=== PATIENT | female | born 1975 | race Two or more races ===

== ENCOUNTER 2016-11-15 15:07 | Emergency (ER) | payer MEDICAID ==
[2016-11-15 15:18] VITALS: BP 171/80; PULSE 105; RESP 18; TEMP 99; O2SAT 96
[2016-11-15] MEDS ORDERED: ONDANSETRON DISINTEGRATING 4 MG TAB PO ONE (16:16)
[2016-11-15] MEDS ORDERED: MECLIZINE HCL 25 MG TAB PO ONE (16:16)
--- NOTE | 2016-11-15 16:20 | UCPHY ---
H & P Time Seen by Provider: 11/15/16 16:01 Patient Type: Established HPI/ROS: This patient has vertigo. She awakened this morning feeling a sense of the room spinning that worsened with movement. This triggered nausea and vomiting- few episodes this morning. Through the day the vertigo is slightly improved and she has had no further vomiting but she does have some ongoing nausea. She is quite anxious about her symptoms. She has had a prior episode of benign paroxysmal positional vertigo but that seemed more episodic then this study episode of vertigo she is concerned that she might "have a stroke." ROS: She reports fatigue that she has associates with a new Azelestine medication that she was started on by her ENT for seasonal allergies 2 weeks ago. She has been using this every other day and feels that it makes her very sleepy. No fevers. No other constitutional symptoms. HEENT: She denies any forehead or maxillary sinus pain. She reports mild occipital discomfort and neck discomfort that feels paraspinous location right side more than left. Pulmonary: No cough GI: No abdominal pain no hematemesis. Neuro: No focal numbness or weakness. She had brief tingling in her scalp that has since resolved. 10 point ROS is otherwise negative. Past Medical/Surgical History: Hypertension Smoking Status: Never smoked Physical Exam: Physical exam: Eyes: Pupils are equal and reactive to light. Extraocular motions are intact. Optic fundi: Clear with no papilledema or hemorrhage. Vital signs are normal General: Patient is in no acute distress. HEENT: No cranial tenderness except for a minimal occipital tenderness at the insertion of paraspinous cervical muscles on the right side. Nose atraumatic. Ears: Clear bilaterally with no hemotympanum. Oropharynx: No dental trauma or malocclusion. No intraoral lacerations. Eyes: Pupils are equal and reactive to light. Extraocular motions are intact. Neck: No midline tenderness. She has mild paraspinous muscular tenderness right more than left but retains a supple neck with no meningismus. Lungs: Clear to auscultation bilaterally Cardiac: Regular rate and rhythm no murmur gallop or rub. Abdomen: Soft nontender no organomegaly Back: Nontender Neuro: GCS of 15. Cranial nerves II through XII intact. Cerebellar exam is normal as judged by symmetric rapid hand movements bilaterally. No pronator drift. No lateral nystagmus. With head movement she has increase in symptoms. No sensory or motor deficits are appreciated. Initial differential diagnosis: Benign positional vertigo. No evidence of central vertigo. No clinical evidence of stroke. Doubt metabolic disarray. Doubt [employer] lesion. Constitutional: Initial Vital Signs Temperature (C) 37.2 C 11/15/16 15:12 Heart Rate 105 H 11/15/16 15:12 Respiratory Rate 18 11/15/16 15:12 Blood Pressure 171/80 H 11/15/16 15:12 O2 Sat (%) 96 11/15/16 15:12 O2 Delivery Mode Room Air Allergies/Adverse Reactions: sulfamethoxazole [From Bactrim] Allergy (Verified 11/15/16 15:10) trimethoprim [From Bactrim] Allergy (Verified 11/15/16 15:10) Home Medications: Medication Instructions Recorded FENOFIBRATE 48 mg 05/02/13 Lisinopril 02/11/14 Aspirin 81mg (OTC) 02/16/15 Fish Oil 02/16/15 Fluticasone Nasal 02/16/15 MAGNESIUM 02/16/15 Vitamin D3 2000 units (OTC) 02/16/15 Aspirin 81mg (*) 11/15/16 Azelastine 11/15/16 Finacea 11/15/16 Fluticasone Nasal [Flonase Nasal 2 sprays NASAL DAILY #1 mdi 11/15/16 [place] (RX)] Iron 11/15/16 Meclizine HCl [Meclizine HCl 25 mg 25 mg PO TID PRN #20 tab 11/15/16 (RX,OTC)] Ondansetron Odt [Zofran Odt] 4 - 8 mg PO Q4PRN PRN #4 tab 11/15/16 Zinc 11/15/16 MDM/Departure - MDM Medications Given: Discontinued Medications Meclizine HCl (Meclizine Hcl) 25 mg PO EDNOW ONE Stop: 11/15/16 16:17 Last Admin: 11/15/16 16:26 Dose: 25 mg Ondansetron HCl (Zofran Odt) 8 mg PO EDNOW ONE Stop: 11/15/16 16:17 Last Admin: 11/15/16 16:25 Dose: 8 mg ED Course/Re-evaluation: Zofran with resolution of her nausea. I counseled the patient regarding peripheral vertigo/benign positional vertigo reassured her that clinically she does not have findings to suggest central vertigo or stroke. She does have hypertension here the think is related to anxiety about her symptoms. She does not have evidence of end-organ injury from hypertension. I counseled her to have follow-up recheck this coming week with her ENT and to recheck her blood pressure. - Depart Disposition: Home, Routine, Self-Care Clinical Impression: Benign positional vertigo Qualifiers: Laterality: unspecified laterality Qualified Code(s): H81.10 - Benign paroxysmal vertigo, unspecified ear Vomiting Qualifiers: Vomiting type: unspecified Vomiting Intractability: non-intractable Nausea presence: with nausea Qualified Code(s): R11.2 - Nausea with vomiting, unspecified Condition: Good Instructions: Benign Paroxysmal Positional Vertigo (ED) Additional Instructions: Diagnoses: 1. Benign positional vertigo 2. Vomiting Plan: Drink plenty fluids Zofran for nausea if needed Meclizine for spinning sensation if needed Stop azelastine and start Flonase steroid nasal spray as prescribed. Call your ENT physician to arrange follow-up appointment for this coming week. Go to the emergency department for any significant worsening despite the treatment plan Prescriptions: Fluticasone Nasal [Flonase Nasal [place] (RX)] 2 sprays NASAL DAILY #1 mdi Meclizine HCl [Meclizine HCl 25 mg (RX,OTC)] 25 mg PO TID PRN #20 tab PRN Reason: vertigo Ondansetron Odt [Zofran Odt] 4 - 8 mg PO Q4PRN PRN #4 tab PRN Reason: Vomiting Referrals: Noe Araujo DO [Primary Care Provider] - As per Instructions - PQRS PQRS Measurement: NA
== END 2016-11-15 16:47 | disposition home or self-care (01) ==
LOC: CED 15:07
DX: H81.10 Benign paroxysmal vertigo, unspecified ear (principal); I10 Essential (primary) hypertension
CPT/HCPCS: 99214-PO; G0463-PO

== ENCOUNTER → 2017-01-24 | Outpatient (CLI) | payer MEDICAID | LOC: CIMAGING 12:55 | PROVIDERS: ATTEND Family Medicine | DX: Z12.39 Encounter for other screening for malignant neoplasm of breast (principal); R92.8 Other abnormal and inconclusive findings on diagnostic imaging of breast | CPT/HCPCS: G0206 ==

== ENCOUNTER 2017-08-16 08:55 | Emergency (ER) | payer MEDICAID ==
[2017-08-16 09:18] VITALS: TEMP 98.8
[2017-08-16] MEDS ORDERED: NS 1,000 ML IV ONE (09:29)
[2017-08-16] MEDS ORDERED: KETOROLAC 30 MG/1 ML SDV IVP ONE (09:30)
[2017-08-16 09:56] LABS: PLATELET COUNT 239 10^3/uL (150-400)
[2017-08-16 10:37] VITALS: BP 144/81; PULSE 90; RESP 18; O2SAT 97
--- NOTE | 2017-08-16 10:48 | EDPHY ---
H & P Time Seen by Provider: 08/16/17 09:09 HPI/ROS: This patient presents with complaints of cough, subjective fevers, myalgias nausea and vomiting. Her symptoms started over the past few days with nasal congestion as her for symptoms prior to the onset of the other symptoms. She reports bilateral ear pressure in addition and a sore throat 7/10 intensity. She has a cough feels like a dry hacky and she is concerned that she might have influenza. She reports that her last menstrual. Had been 3 months ago and now this current menses is "heavy your in bleeding than typical for her. She has associated pelvic cramping of [id number] intensity. Her brought her here by private vehicle due to her multiple somatic complaints. ROS: Subjective fevers and chills. Moderate fatigue. No other constitutional symptoms Psychiatric: She reports insomnia over the past 4 nights have very little sleep. She has mild anxiety this morning associated with her symptoms. HEENT: Nasal congestion no facial pain. No change in hearing. Neuro: No generalized headache or confusion. No numbness tingling or focal weakness. Pulmonary: No pleuritic pain or hemoptysis Cardiovascular: Mild lightheadedness GI: Diarrhea-few episodes over the past 24 hr loose and watery. No abdominal pain. : As per HPI. Patient saw her OB this week due to her abdominal cramping and negative test. 10 point ROS is otherwise negative Smoking Status: Never smoked Physical Exam: Vital signs are notable for hypertension. Otherwise normal exception of an O2 sat of 94% on room air General Appearance: Alert, no distress. Eyes: Pupils equal and round no pallor or injection. ENT, Mouth: Mucous membranes moist. Respiratory: Clear to auscultation bilaterally no rales or rhonchi appreciated. Cardiovascular: Regular rate and rhythm. Gastrointestinal: Normoactive, soft, minimal suprapubic tenderness with no guarding or rebound. Neurological: GCS 15. Skin: Warm and dry, no rashes. Musculoskeletal: Neck is supple nontender. Extremities are symmetrical, full range of motion. Psychiatric: Patient is mildly anxious. Mood and affect are otherwise normal. DIFFERENTIAL DIAGNOSIS: After history and physical exam differential diagnosis was considered for influenza, anemia, , viral syndrome, insomnia Constitutional: Initial Vital Signs Temperature (C) 37.1 C 08/16/17 08:59 Heart Rate 100 08/16/17 08:59 Respiratory Rate 20 08/16/17 08:59 Blood Pressure 165/118 H 08/16/17 08:59 O2 Sat (%) 94 08/16/17 08:59 O2 Delivery Mode Room Air Allergies/Adverse Reactions: sulfamethoxazole [From Bactrim] Allergy (Verified 08/16/17 09:04) Other-Enter Comments trimethoprim [From Bactrim] Allergy (Verified 08/16/17 09:04) Other-Enter Comments Home Medications: Medication Instructions Recorded Fish Oil 02/16/15 Fluticasone Nasal 02/16/15 MAGNESIUM 02/16/15 Vitamin D3 2000 units (OTC) 02/16/15 Fluticasone Nasal [Flonase Nasal 2 sprays NASAL DAILY #1 mdi 11/15/16 [place] (RX)] Iron 11/15/16 Zinc 11/15/16 Zaleplon [Sonata] 10 mg PO HS PRN #12 capsule 08/16/17 MDM/Departure - MDM Medications Given: Discontinued Medications Sodium Chloride (Ns) 1,000 mls @ 0 mls/hr IV EDNOW ONE; Wide Open PRN Reason: Protocol Stop: 08/16/17 09:30 Last Admin: 08/16/17 09:46 Dose: 1,000 mls Ketorolac Tromethamine (Toradol) 30 mg IVP EDNOW ONE Stop: 08/16/17 09:31 Last Admin: 08/16/17 09:47 Dose: 30 mg ED Course/Re-evaluation: IV normal saline with IV Toradol and Zofran with improvement in her symptoms. Review of labs reveals normal CBC metabolic panel. test is negative Discussion workup ruled out or anemia. No other significant abnormal findings. Patient's hypertension improved with treatment here of her other symptoms. I think that she has a viral illness that will improve if she is able to get rest. I recommended sonata for her insomnia. Will treat her dysmenorrhea with ibuprofen. She will follow up with her OBGYN for further evaluation of any ongoing vaginal bleeding. - Depart Disposition: Home, Routine, Self-Care Clinical Impression: Dysmenorrhea, Viral URI with cough Condition: Good Instructions: Dysmenorrhea (ED), Insomnia (ED) Additional Instructions: Diagnosis: Dysmenorrhea 2. Insomnia 3. Viral URI with cough Your labs are normal today. Plan: Drink plenty fluids Ibuprofen-600 mg per 6 hr as needed for pain Sonata for sleep if needed Follow up with your OBGYN regarding your irregular menses. Return emergency department for any significant worsening despite the treatment plan. Prescriptions: Zaleplon [Sonata] 10 mg PO HS PRN #12 capsule PRN Reason: insomnia Referrals: Noe Araujo DO [Primary Care Provider] - As per Instructions
== END 2017-08-16 11:09 | disposition home or self-care (01) ==
LOC: CED 08:55
DX: J06.9 Acute upper respiratory infection, unspecified (principal); N94.6 Dysmenorrhea, unspecified; E86.9 Volume depletion, unspecified
CPT/HCPCS: 80048-PO; 84703-PO; 85025-PO; 96374; J1885

== ENCOUNTER 2017-08-24 20:57 | Emergency (ER) | payer MEDICAID ==
[2017-08-24 21:16] VITALS: BP 135/107; PULSE 82; RESP 18; TEMP 98.1; O2SAT 95
--- NOTE | 2017-08-24 21:30 | EDPHY ---
H & P Time Seen by Provider: 08/24/17 21:05 HPI/ROS: CHIEF COMPLAINT: Dizziness, insomnia History by patient HISTORY OF PRESENT ILLNESS: 42-year-old woman with a history of hypertension and anxiety presents complaining of insomnia, strange dreams, feeling confused and unwell since she began taking metoprolol for her blood pressure 3 days ago. Patient was seen 1 week ago for flu-like symptoms and apparently also at that time had taken an accidental overdose of diphenhydramine. She says subsequently her blood pressures remained high in her primary care physician started her on metoprolol. She also states that she has not slept in over a week since that episode. She has a history of anxiety for which she does cognitive behavioral therapy when she feels that that could be contributing. She says that when he tries to go to sleep she gets frightening images of people hanging or blood thinks about things like suicide although she denies wanting to kill herself. She has no suicidal plan. She does state that she has spoken to both her usual therapist, her primary care physician and a 2nd therapist about these thoughts and images acute coming in her brain when she is trying sleep and they have told her that she is not acutely manic or suicidal. She does wonder however if she might be having a mental illness. She denies any blood pressure related symptoms such as headache, chest pain, shortness of breath or swelling. REVIEW OF SYSTEMS: As in HPI, and all other systems reviewed and are negative Smoking Status: Never smoked Physical Exam: General Appearance: Alert, obese, nontoxic-appearing. Head: normocephalic, atraumatic Eyes: Pupils equal and round, reactive to light, no pallor or injection. Mouth: Mucous membranes moist. Respiratory: Normal, effort, lungs are clear to auscultation. No wheezes, rales or rhonchi. Cardiovascular: Regular rate and rhythm. S1, S2, no murmurs, gallops or rubs appreciated Gastrointestinal: Abdomen is soft and nontender, no masses, bowel sounds normal. Back: No CVA tenderness, no bony tenderness Neurological: Awake, alert and oriented x 3, no pronator drift, normal gait, no pronator drift, normal reflexes Skin: Warm and dry, no rashes. Musculoskeletal: No deformities or tenderness. Extremities: full range of motion, no edema, DP2+ bilat Psychiatric: Patient has normal affect, there is no agitation. No suicidal homicidal ideation Constitutional: Initial Vital Signs Temperature (C) 36.7 C 08/24/17 21:12 Heart Rate 82 08/24/17 21:12 Respiratory Rate 18 08/24/17 21:12 Blood Pressure 135/107 H 08/24/17 21:12 O2 Sat (%) 95 08/24/17 21:12 O2 Delivery Mode Room Air Allergies/Adverse Reactions: diphenhydramine [From Benadryl] Allergy (Verified 08/24/17 21:11) sulfamethoxazole [From Bactrim] Allergy (Verified 08/16/17 09:04) Other-Enter Comments trimethoprim [From Bactrim] Allergy (Verified 08/16/17 09:04) Other-Enter Comments Home Medications: Medication Instructions Recorded Fish Oil 02/16/15 Fluticasone Nasal 02/16/15 MAGNESIUM 02/16/15 Vitamin D3 2000 units (OTC) 02/16/15 Fluticasone Nasal [Flonase Nasal 2 sprays NASAL DAILY #1 mdi 11/15/16 [place] (RX)] Iron 11/15/16 Zinc 11/15/16 Zaleplon [Sonata] 10 mg PO HS PRN #12 capsule 08/16/17 Metoprolol Tartrate 08/24/17 MDM/Departure - [facility] ED Course/Re-evaluation: 42-year-old woman presents complaining of feeling unwell after starting metoprolol as well as ongoing insomnia. Patient was prescribed some nausea for her insomnia when she was here 1 week ago but she said that this medicine made her feel terrible. She says she is generally intolerant to or sensitive to medications. Here her blood pressure is slightly elevated but there is no evidence of hypertensive emergency or urgency. Since she feels some of her symptoms are related to taking metoprolol I think it is safe for her to stop this medication and follow up with primary care physician later this week to discuss starting a different kind of blood pressure medication. Patient does state she took lisinopril in the past with good results. Patient also is concerned about her mental health and although she is not actively suicidal or homicidal or danger to herself or gravely disabled at this time I do think she would benefit for ongoing psychiatric care and I am recommending that she get a referral to a psychiatrist from her therapist that she follow up closely with her therapist. Patient her are agreeable to this plan. - Depart Disposition: Home, Routine, Self-Care Clinical Impression: Elevated blood pressure reading, Anxiety Insomnia Qualifiers: Insomnia type: unspecified Qualified Code(s): G47.00 - Insomnia, unspecified Condition: Good Instructions: Chronic Hypertension (ED), Insomnia (ED), Anxiety (ED) Additional Instructions: You were seen by Dr. Ani Hunt today. Stop taking your metoprolol. Follow up with the primary care physician as soon as possible to change blood pressure medications. Continue to follow up with your cognitive behavioral therapist and consider referral to a psychiatrist. Return for any worsening or new concerns. Referrals: Noe Araujo, [Primary Care Provider] - As per Instructions
== END 2017-08-24 21:34 | disposition home or self-care (01) ==
LOC: CED 20:57
DX: G47.00 Insomnia, unspecified (principal); F41.9 Anxiety disorder, unspecified; I10 Essential (primary) hypertension

== ENCOUNTER → 2017-08-26 | Outpatient (CLI) | payer MEDICAID | LOC: CIMAGING 10:36 | PROVIDERS: ATTEND Family Medicine | DX: Z13.820 Encounter for screening for osteoporosis (principal) ==

== ENCOUNTER 2017-09-24 10:00 | Emergency (ER) | payer MEDICAID ==
--- NOTE | 2017-09-24 10:40 | EDPHY ---
H & P Smoking Status: Never smoked Time Seen by Provider: 09/24/17 10:21 HPI/ROS: CHIEF COMPLAINT: Hallucinations, suicidal ideation HISTORY OF PRESENT ILLNESS: 42-year-old female presents with hallucinations and suicidal ideation. 1 month ago she took Benadryl for the 1st time and experienced visual hallucinations and violent dreams. This experience has deeply affected her and she states she has had PTSD since that episode. Over the last month, she has had insomnia and is being kept awake at night by recurring thoughts of the episode with Benadryl. Last evening she had a visual hallucination. She thought that her was in was 1 room, but then actually saw him in another. She became very upset about this and felt that she was losing her mind. She also has an episode of memory loss yesterday, associated with forehead tingling. Increased anxiety recently and she feels that she is having a mental breakdown. Her primary care physician prescribe Zoloft last week, but she has not taken Zoloft. Previously worked in the mental health field. REVIEW OF SYSTEMS: Constitutional: No fever, no recent illness Eyes: No visual changes ENT: No sore throat Respiratory: No cough, no shortness of breath Cardiac: No chest pain Gastrointestinal: No nausea, no vomiting, no abdominal pain Genitourinary: no dysuria Musculoskeletal: No leg pain or swelling Skin: No rash Neurological: No headache, no numbness, no weakness Psychiatric: Anxiety and depression (Kristie Fung) Past Medical/Surgical History: Anxiety Depression (Kristie Fung) Social History: (Kristie Fung) Physical Exam: General Appearance: Alert, pleasant Eyes: Pupils equal and round, no conjunctival pallor or injection ENT, Mouth: Mucous membranes moist Neck: Normal inspection Respiratory: Lungs are clear to auscultation Cardiovascular: Regular rate and rhythm Gastrointestinal: Abdomen is soft and nontender Neurological: Alert, oriented x3, cranial nerves II through XII intact, motor 5 /5, sensory intact to light touch, normal gait. Skin: Warm and dry, no rash Extremities: Nontender, no pedal edema Psychiatric: Anxious (Kristie Fung) Constitutional: Initial Vital Signs Temperature (C) 36.8 C 09/24/17 10:06 Heart Rate 100 09/24/17 10:06 Respiratory Rate 20 09/24/17 10:06 Blood Pressure 132/99 H 09/24/17 10:06 O2 Sat (%) 96 09/24/17 10:06 O2 Delivery Mode Room Air Allergies/Adverse Reactions: diphenhydramine [From Benadryl] Allergy (Verified 09/24/17 10:04) sulfamethoxazole [From Bactrim] Allergy (Verified 09/24/17 10:04) Other-Enter Comments trimethoprim [From Bactrim] Allergy (Verified 09/24/17 10:04) Other-Enter Comments Home Medications: Medication Instructions Recorded Fish Oil 02/16/15 Fluticasone Nasal 02/16/15 MAGNESIUM 02/16/15 Vitamin D3 2000 units (OTC) 02/16/15 Fluticasone Nasal [Flonase Nasal 2 sprays NASAL DAILY #1 mdi 11/15/16 [place] (RX)] Iron 11/15/16 Zinc 11/15/16 Medical Decision Making - Diagnostics Imaging Results: Imaging Impressions Head CT 09/24/17 10:23 Impression: No acute intracranial findings. If symptoms persist and clinical suspicion warrants, consider MRI. Findings discussed with Cyndi Meneses, answering for KRISTIE FUNG, 09/24/2017 at 12:03. Other Provider: Patient was signed out to me at [address] Fung pending mental health evaluation, with anticipation of likely discharge home if mental health agrees. At 1845, I was informed by Alina, the mental health dough machine operator that the evaluation was complete and they feel the patient is safe for discharge home. They have counseled the patient extensively and established a safety plan. ( Arnulfo Zaidi) - Data Points Laboratory Results: Laboratory Results 09/24/17 10:40 09/24/17 10:40 09/24/17 09/24/17 09/24/17 10:45 10:40 10:40 WBC RBC Hgb Hct MCV MCH MCHC RDW Plt Count MPV Neut % (Auto) Lymph % (Auto) [place] % (Auto) Eos % (Auto) Baso % (Auto) Nucleat RBC Rel Count Absolute Neuts (auto) Absolute Lymphs (auto) Absolute Monos (auto) Absolute Eos (auto) Absolute Basos (auto) Absolute Nucleated RBC Immature Gran % Immature Gran # Sodium 143 mEq/L mEq/L (135-145) Potassium 3.9 mEq/L mEq/L (3.5-5.2) Chloride 107 mEq/L mEq/L (97-110) Carbon Dioxide 22 mEq/l mEq/l (22-31) Anion Gap 14 mEq/L mEq/L (8-16) BUN 9 mg/dL mg/dL (7-23) Creatinine 0.7 mg/dL mg/dL (0.6-1.0) Estimated GFR > 60 Glucose 115 mg/dL H mg/dL (70-100) Calcium 9.8 mg/dL mg/dL (8.5-10.4) TSH 1.610 uIU/mL uIU/mL (0.465-4.680) Beta HCG, Qual NEGATIVE Urine Opiates Screen NEGATIVE (NEGATIVE) Urine Barbiturates NEGATIVE (NEGATIVE) Ur Phencyclidine Scrn NEGATIVE (NEGATIVE) Ur Amphetamine Screen NEGATIVE (NEGATIVE) U Benzodiazepines Scrn NEGATIVE (NEGATIVE) Urine Cocaine Screen NEGATIVE (NEGATIVE) U Marijuana (THC) Screen NEGATIVE (NEGATIVE) Ethyl Alcohol < 10 mg/dL mg/dL (0-10) 09/24/17 10:40 WBC 11.04 10^3/uL H 10^3/uL (3.80-9.50) RBC 4.97 10^6/uL 10^6/uL (4.18-5.33) Hgb 15.3 g/dL g/dL (12.6-16.3) Hct 43.6 % % (38.0-47.0) MCV 87.7 fL fL (81.5-99.8) MCH 30.8 pg pg (27.9-34.1) MCHC 35.1 g/dL g/dL (32.4-36.7) RDW 13.3 % % (11.5-15.2) Plt Count 243 10^3/uL 10^3/uL (150-400) MPV 9.7 fL fL (8.7-11.7) Neut % (Auto) 76.1 % H % (39.3-74.2) Lymph % (Auto) 16.1 % % (15.0-45.0) [place] % (Auto) 6.6 % % (4.5-13.0) Eos % (Auto) 0.4 % L % (0.6-7.6) Baso % (Auto) 0.5 % % (0.3-1.7) Nucleat RBC Rel Count 0.0 % % (0.0-0.2) Absolute Neuts (auto) 8.40 10^3/uL H 10^3/uL (1.70-6.50) Absolute Lymphs (auto) 1.78 10^3/uL 10^3/uL (1.00-3.00) Absolute Monos (auto) 0.73 10^3/uL 10^3/uL (0.30-0.80) Absolute Eos (auto) 0.04 10^3/uL 10^3/uL (0.03-0.40) Absolute Basos (auto) 0.06 10^3/uL 10^3/uL (0.02-0.10) Absolute Nucleated RBC 0.00 10^3/uL 10^3/uL (0-0.01) Immature Gran % 0.3 % % (0.0-1.1) Immature Gran # 0.03 10^3/uL 10^3/uL (0.00-0.10) Sodium Potassium Chloride Carbon Dioxide Anion Gap BUN Creatinine Estimated GFR Glucose Calcium TSH Beta HCG, Qual Urine Opiates Screen Urine Barbiturates Ur Phencyclidine Scrn Ur Amphetamine Screen U Benzodiazepines Scrn Urine Cocaine Screen U Marijuana (THC) Screen Ethyl Alcohol Departure - Departure Disposition: Home, Routine, Self-Care Clinical Impression: Depression Qualifiers: Depression Type: major depressive disorder Major depression recurrence: recurrent Active/Remission status: currently active Major depression episode severity: moderate Qualified Code(s): F33.1 - Major depressive disorder, recurrent, moderate Condition: Good Instructions: Depression (ED), Anxiety (ED) Referrals: Noe Araujo DO [Primary Care Provider] - As per Instructions [facility] [Outside] - As per Instructions (Follow-up as suggested.)
[2017-09-24 10:49] LABS: PLATELET COUNT 243 10^3/uL (150-400)
[2017-09-24 12:04] VITALS: RESP 16
[2017-09-24 18:37] VITALS: BP 129/88; PULSE 92; TEMP 97.9; O2SAT 94
== END 2017-09-24 19:05 | disposition home or self-care (01) ==
DX: F33.1 Major depressive disorder, recurrent, moderate (principal)
CPT/HCPCS: 80305; G0480

== ENCOUNTER → 2018-08-06 | Outpatient (CLI) | payer OTHER | LOC: CIMAGING 10:16 | PROVIDERS: ATTEND Family Medicine | DX: R19.04 Left lower quadrant abdominal swelling, mass and lump (principal) | CPT/HCPCS: 76705-PO ==

== ENCOUNTER → 2018-09-09 | Outpatient (CLI) | payer OTHER | LOC: CIMAGING 10:42 | PROVIDERS: ATTEND Family Medicine | DX: Z12.31 Encounter for screening mammogram for malignant neoplasm of breast (principal) ==

== ENCOUNTER 2018-10-02 07:48 | Emergency (ER) | payer OTHER ==
[2018-10-02] MEDS ORDERED: NS 1,000 ML IV ONE (08:12)
[2018-10-02] MEDS ORDERED: KETOROLAC 30 MG/1 ML SDV IVP ONE (08:12)
--- NOTE | 2018-10-02 08:16 | EDPHY ---
H & P Stated Complaint: right abd pain/flank pain started 2 weeks, hematuria started 4 days ago Time Seen by Provider: 10/02/18 07:56 HPI/ROS: CHIEF COMPLAINT: Right adnexal pain, right flank pain, hematuria HISTORY OF PRESENT ILLNESS: 43-year-old female with history of polycystic ovary disease, on metformin, and history of hypertension, on prazosin, presents to the emergency department reporting for the last 2-3 weeks she has had progressively worsening right low quadrant/right adnexal discomfort. She reports it felt like she was developing a cyst on her right ovary. Last menstrual period was September 16. Patient then began to note discomfort in the right flank 2-3 days ago, and this morning had an episode of urinary incontinence. She thinks her may have been blood in the urine. She now presents with discomfort in the right lower quadrant as well as the right flank. No nausea. No vomiting. No fever. No dysuria. No diarrhea. No personal history of kidney stones, however her mother has a history of kidney stones. No vaginal bleeding. No prior abdominal surgeries. No history of constipation. Last bowel movement was earlier today. No fever, chills, chest pain, shortness of breath, palpitations, vomiting, diarrhea, headache, lightheadedness. REVIEW OF SYSTEMS: A comprehensive 10 system review of systems was reviewed and is otherwise negative aside from elements mentioned in the history of present illness and medical decision making. PAST MEDICAL HISTORY: Polycystic ovary disease, hypertension. SOCIAL HISTORY: Nonsmoker, no alcohol, no illicit drug use. VITAL SIGNS Reviewed by me. GENERAL: Well-developed, well-nourished, resting comfortably in no respiratory distress. HEENT: Atraumatic. Eyes: No icterus, no injection. Mouth: moist mucous membranes. No erythema or lesions. Neck: supple with no adenopathy. LUNGS: Clear to auscultation bilaterally, no wheezes, rhonchi or rales. CARDIAC: Regular rate and rhythm, no rubs, murmurs or gallops. ABDOMEN: Soft, mild tenderness to deep palpation in the right adnexal and right lower quadrants. No guarding or rebound. BACK: Slight right CVA tenderness. EXTREMITIES: No trauma. No edema. Range of motion is normal throughout. NEURO: Alert and oriented, grossly nonfocal. SKIN: Warm and dry, no rash. PSYCHIATRIC: Normal mentation, no agitation. - Personal History LMP (Females 10-55): 8-14 Days Ago Tetanus Vaccine Date: 2009 - Medical/Surgical History Hx Asthma: No Hx Chronic Respiratory Disease: No Hx Diabetes: No Hx Cardiac Disease: No Hx Renal Disease: No Hx Cirrhosis: No Hx Alcoholism: No Hx HIV/AIDS: No Hx Splenectomy or Spleen Trauma: No Other PMH: HTN, rhinoplasty, hemorrhoidectomy, seasonal allergies, PCOS - Social History Smoking Status: Never smoked Constitutional: Initial Vital Signs Temperature (C) 36.8 C 10/02/18 07:55 Heart Rate 84 10/02/18 07:55 Respiratory Rate 18 10/02/18 07:55 Blood Pressure 153/82 H 10/02/18 07:55 O2 Sat (%) 97 10/02/18 07:55 O2 Delivery Mode Room Air Allergies/Adverse Reactions: diphenhydramine [From Benadryl] Allergy (Verified 10/02/18 07:54) sulfamethoxazole [From Bactrim] Allergy (Verified 10/02/18 07:54) Other-Enter Comments trimethoprim [From Bactrim] Allergy (Verified 10/02/18 07:54) Other-Enter Comments Home Medications: Medication Instructions Recorded Cephalexin [Keflex (RX)] 500 mg PO TID 7 Days cap 10/02/18 Ibuprofen 600 mg PO Q8 PRN #20 tablet 10/02/18 Metformin HCl 10/02/18 Prazosin HCl 10/02/18 Medical Decision Making - Diagnostics Imaging Results: Imaging Impressions Abdomen/Pelvis CT 10/02/18 08:48 IMPRESSION: 1. No evidence of nephrolithiasis or hydronephrosis. 2. 5.0 cm complex right adnexal cystic lesion may represent hemorrhagic cyst. Further evaluation with ultrasound is recommended. 3. Thickened, heterogenous endometrium with more focal irregular, masslike thickening and fluid density in the lower uterine segment, further evaluation with ultrasound is recommended to exclude mass. Julissa Rodriguez was notified of these findings by telephone at 9:24 AM on 10/02/2018 Pelvic/Renal Ultrasound 10/02/18 09:24 Impression: 1. Two benign simple cysts in the right ovary, measuring up to 4.3 cm. For cysts less than 5 cm, no specific imaging follow up is recommended. 2. Normal thickness minimally heterogeneous endometrium, likely within normal limits, with multiple nabothian cysts accounting for the appearance on CT. Findings discussed with Julissa Rodriguez MD on 10/02/2018 at 10:30 a.m. ED Course/Re-evaluation: 43-year-old female with history of polycystic ovarian disease presenting with right adnexal and lower quadrant discomfort as well as right flank is comfort. IV was placed and the patient received Toradol. Urinalysis demonstrates blood and leukocyte esterase. CT scan was obtained to evaluate for kidney stone. No kidney stones were identified, patient was noted to have a large cyst in the right ovary. Ultrasound evaluation was recommended. Pelvic ultrasound demonstrates simple cyst in the right ovary with the largest being 4.3 cm. Patient also has multiple nabothian cysts. No free fluid. Patient advised to follow up with her OBGYN physician for further treatment and observation of the cyst. Urine was sent for culture. No complaints related to possible appendicitis, patient has not had any vomiting , fever, anorexia, and symptoms have been present for 2-3 weeks. Doubt appendicitis, however, patient knows that she should return to the emergency department if she is not improving as expected. Patient was discharged with instructions regarding ibuprofen, Tylenol if needed for additional pain control, and will start Keflex for her complains of urinary frequency. She states that she has gone to the bathroom about 4 times here and is feeling some urinary urgency. Urine sent for culture. Differential Diagnosis: The differential diagnosis for the patient's abdominal pain was considered including but not limited to ovarian cyst, pelvic inflammatory disease, ovarian torsion, urinary tract infection, related complications, and appendicitis. - Data Points Laboratory Results: 10/02/18 10/02/18 08:32 08:10 POC Sodium 139 mEq/L mEq/L (135-145) POC Potassium 4.0 mEq/L mEq/L (3.3-5.0) POC Chloride 105.0 mEq/L mEq/L (97-110) POC Total CO2 24 mEq/L mEq/L (22-31) POC BUN 8 mg/dL mg/dL (7-23) POC Creatinine 0.4 mg/dL L mg/dL (0.6-1.0) POC Glucose 110 mg/dL H mg/dL (70-100) POC Calcium 9.1 mg/dL mg/dL (8.5-10.4) Urine RBC 1-3 /hpf /hpf (0-3) Urine WBC 5-10 /hpf H /hpf (0-3) Ur Epithelial Cells 2+ /lpf H /lpf (NONE-1+) Medications Given: Discontinued Medications Sodium Chloride (Ns) 1,000 mls @ 0 mls/hr IV ONCE ONE; Wide Open PRN Reason: Protocol Stop: 10/02/18 08:13 Last Admin: 10/02/18 08:32 Dose: 1,000 mls Ketorolac Tromethamine (Toradol) 30 mg IVP EDNOW ONE Stop: 10/02/18 08:13 Last Admin: 10/02/18 08:32 Dose: 30 mg Point of Care Test Results: CBC CBC Collection Date 10/02/18 CBC Collection Time 08:25 WBC 9.04 RBC 4.94 HGB 14.5 HCT 43.0 PLT 235 Neut # 6.54 Neut 72.4 LYMPH # 1.81 LYMPH 20.0 MCV 87.0 Chemistry 10/02/18 08:32 POC Sodium 139 mEq/L mEq/L (135-145) POC Potassium 4.0 mEq/L mEq/L (3.3-5.0) POC Chloride 105.0 mEq/L mEq/L (97-110) POC Total CO2 24 mEq/L mEq/L (22-31) POC BUN 8 mg/dL mg/dL (7-23) POC Creatinine 0.4 mg/dL L mg/dL (0.6-1.0) POC Glucose 110 mg/dL H mg/dL (70-100) POC Calcium 9.1 mg/dL mg/dL (8.5-10.4) Urine Collection Date 10/02/18 Collection Time 08:10 HCG Results Negative Urine Dip Collection Date 10/02/18 Collection Time 08:10 Specific [place] (1.002-1.030) 1.025 PH (5.0-7.5) 6.5 Leukocytes (Negative) Trace Nitrites (Negative) Negative Protein (Negative) Negative Glucose (Negative) Negative Ketones (Negative) Negative Urobilnogen (0.2-1.0 EU) 0.2 Bilirubin (Negative) Negative Blood (Negative) 1+ Departure - Departure Disposition: Home, Routine, Self-Care Clinical Impression: Abdominal pain Qualifiers: Abdominal location: right lower quadrant Qualified Code(s): R10.31 - Right lower quadrant pain Ovarian cyst Qualifiers: Laterality: right Qualified Code(s): N83.201 - Unspecified ovarian cyst, right side Condition: Good Instructions: Ovarian Cyst (ED), Urinary Urgency and Frequency (DC) Additional Instructions: 1. Please take ibuprofen 600 mg every 6-8 hours on a regular basis for the next several days for pain relief as well as anti inflammation. 2. You may use additional Tylenol on top of the ibuprofen if needed for additional pain relief. Dose of Tylenol 650 mg every 4-6 hours, not to exceed 3 g in 24 hr. 3. You been given a prescription of Keflex. Please take this as directed. If the urine culture does not demonstrate a infection, you may stop. 4. Please follow up with your primary care physician or with OBGYN for further evaluation. Return to the emergency department or seek care urgently if he develops fever, vomiting, worsening pain despite the above measures, or other concerns. Referrals: Noe Araujo DO [Primary Care Provider] - As per Instructions Muna White MD [Medical Doctor] - As per Instructions (Dr. White is a OBGYN physician. Please follow up with her or one of her colleagues as needed.) Prescriptions: Cephalexin [Keflex (RX)] 500 mg PO TID 7 Days cap Ibuprofen 600 mg PO Q8 PRN #20 tablet PRN Reason: Pain, Breakthrough
[2018-10-02 10:50] VITALS: BP 139/68
== END 2018-10-02 11:10 | disposition home or self-care (01) ==
LOC: CED 07:48
DX: N83.201 Unspecified ovarian cyst, right side (principal); I10 Essential (primary) hypertension; E86.9 Volume depletion, unspecified; Z79.899 Other long term (current) drug therapy
CPT/HCPCS: 74176-PO; 76856-PO; 80048-ER; 96361-ER; 96374-ER; J1885

== ENCOUNTER 2018-10-22 09:56 | Emergency (ER) | payer OTHER ==
--- NOTE | 2018-10-22 10:24 | EDPHY ---
H & P Time Seen by Provider: 10/22/18 10:12 HPI/ROS: CHIEF COMPLAINT: Rash HISTORY OF PRESENT ILLNESS: Patient is a 43-year-old female presents emergency department a rash on her right buttock. She is concerned that she may have shingles. She has not had shingles previously. Patient states that she noticed a rash a couple of days ago. It is painful to touch. Is only on the right side. She has had no fevers or chills. She is concerned that her son may have chickenpox. REVIEW OF SYSTEMS: 10 systems were reveiwed and are negative with the exception of the elements mentioned in the history of present illness. Past Medical/Surgical History: Includes hypertension, diabetes, PCOS Smoking Status: Never smoked Physical Exam: Vitals noted GENERAL: Well-appearing, in no acute distress, alert. HEENT: Eyes normal to inspection, normal pharynx, no signs of dehydration. NECK: Normal, supple. RESPIRATORY: Clear to auscultation bilaterally, no rales, rhonchi or wheezing. CVS: Regular rate and rhythm, no rubs, murmurs, or gallops. ABDOMEN: Soft, nontender, nondistended, no organomegaly. BACK: Normal to inspection, no CVA tenderness. SKIN: The patient has a [place] lesion on her right buttock. This is irregularly shaped. It is consistent with a zoster type lesion. This is not appear to be an abscess or cellulitis. No surrounding warmth or erythema. No fluctuance. Normal color, no rash, warm, dry. No pallor. EXTREMITIES: No pedal edema, no calf tenderness, no Homans sign or cords, no joint swelling. NEURO/PSYCH: Alert and oriented, normal mood and affect, normal motor sensory exam. Constitutional: Initial Vital Signs Temperature (C) 37.1 C 10/22/18 10:07 Heart Rate 90 10/22/18 10:07 Respiratory Rate 18 10/22/18 10:07 Blood Pressure 159/80 H 10/22/18 10:07 O2 Sat (%) 95 10/22/18 10:07 O2 Delivery Mode Room Air Allergies/Adverse Reactions: diphenhydramine [From Benadryl] Allergy (Verified 10/02/18 07:54) sulfamethoxazole [From Bactrim] Allergy (Verified 10/02/18 07:54) Other-Enter Comments trimethoprim [From Bactrim] Allergy (Verified 10/02/18 07:54) Other-Enter Comments Home Medications: Medication Instructions Recorded Metformin HCl 10/02/18 Prazosin HCl 10/02/18 Hydrochlorothiazide 10/22/18 Valacyclovir HCl [Valtrex] 1,000 mg PO TID #21 tab 10/22/18 Medical Decision Making ED Course/Re-evaluation: In the emergency department I discussed possible etiologies with the patient. I answered all her questions. I discussed possible diagnosis of zoster. Patient will be given antiviral medicine as well as steroids. She was given warnings prior to leaving. She will return worsening symptoms. Differential Diagnosis: My differential includes but is not limited to zoster, cellulitis, abscess, folliculitis, allergic reaction Departure - Departure Disposition: Home, Routine, Self-Care Clinical Impression: Zoster Qualifiers: Herpes zoster complications: without complications Qualified Code(s): B02.9 - Zoster without complications Condition: Good Instructions: Shingles (ED) Additional Instructions: You're rash may be become more pronounced. If the rash has significant spreading over the rest of the body, he developed persistent fever, or any other concerns return for further evaluation. Referrals: Noe Araujo, [Primary Care Provider] - 5-7 days, call for appt. Prescriptions: Valacyclovir HCl [Valtrex] 1,000 mg PO TID #21 tab
[2018-10-22 10:46] VITALS: BP 132/91
== END 2018-10-22 10:31 | disposition home or self-care (01) ==
LOC: CED 09:56
DX: B02.9 Zoster without complications (principal); I10 Essential (primary) hypertension; E11.9 Type 2 diabetes mellitus without complications; Z79.4 Long term (current) use of insulin
CPT/HCPCS: 99283-ER

== ENCOUNTER 2018-12-13 17:54 | Emergency (ER) | payer OTHER ==
--- NOTE | 2018-12-13 18:15 | EDPHY ---
H & P Time Seen by Provider: 12/13/18 17:59 HPI/ROS: HPI Diagnosed with pneumonia 2 weeks ago. Not feeling well still. 43-year-old female by private vehicle with her son. This patient was seen at an urgent care 2 weeks ago with complaint of cough, body aches, fevers, headaches, nasal congestion and rhinorrhea. She was diagnosed with a pneumonia. She was placed on a 7 day course of doxycycline. She presents to the emergency department tonight complaining of continued symptoms including nonproductive cough, body aches, feeling feverish, malaise, intermittent headaches and nasal congestion. I reviewed the results of her chest x-ray on November 29 of this year. This showed by basilar atelectasis but no infiltrate. She she states that she was also tested for influenza urgent care in this was negative. ROS: Constitutional: As above. Eyes: No discharge. No changes in vision. ENT: No sore throat. As above. Respiratory: As above. Cardiac: No chest pain, no palpitations. Gastrointestinal: No abdominal pain, no vomiting, no diarrhea. Genitourinary: No hematuria. No dysuria or increased frequency with urination. Musculoskeletal: No back pain. No neck pain. No myalgias or arthralgias. Skin: No rashes. Neurological: As above. No focal weakness or altered sensation. Past medical history: Hypertension, rhinoplasty, hemorrhoidectomy, seasonal allergies, PCOS. Social history: Nonsmoker. Here with her son. No alcohol. Physical Exam: General Appearance: Alert, she is not in distress. This patient is responding to questions appropriately and in full sentences. This patient appears well- hydrated and well-nourished. Eyes: Pupils equal and round no pallor or injection. No lid edema, erythema or injection. ENT, Mouth: Mucous membranes are moist. The pharyngeal tissues are unremarkable. No edema or swelling. No asymmetry suggestive of abscess. No erythema or exudates. No stridor on auscultation of her neck. No voice changes. No cervical, submandibular, submental lymphadenopathy. Respiratory: There are no retractions, lungs are clear to auscultation with good air movement bilaterally. No tachypnea. Cardiovascular: Regular rate and rhythm. No murmur. Neurological: Motor sensory function is grossly intact. Cranial nerves are normal. Gait is normal. Skin: Warm and dry, no rashes. Musculoskeletal: Neck is supple and nontender. No pain on flexion of her neck. Extremities are symmetrical. All joints range without pain or impingement. Psychiatric: No agitation. No depression. Database: EKG: Imaging: Chest x-ray PA and lateral: The cardiac mediastinal silhouette is normal. There is no evidence of infiltrate or pneumothorax. No acute cardiopulmonary disease process noted. Interpreted by me. Procedures: Emergency department course: Triage vital signs reviewed and are normal. She is afebrile. Chest x-ray to be obtained. Patient endorses. Her presentation is more consistent with a viral syndrome and bronchitis versus bacterial pneumonia. 6:30 p.m., the patient was re-evaluated, she is resting comfortably at this time. Results of her chest x-ray were discussed with her. I feel bacterial pneumonia is unlikely. I discussed diagnosis of viral bronchitis and viral syndrome and continued supportive care. I recommended [id number] cough and cold medications such as Robitussin and NyQuil. I discussed ibuprofen dosing with her. She does feel comfortable going home with her son. I will have her follow up with her primary care physician this week for re-evaluation. Return to emergency department precautions were thoroughly reviewed with her. All of her questions were answered. She was discharged from the emergency department in good condition. Differential Diagnosis: The differential diagnosis on this patient includes but is not limited to viral syndrome, viral bronchitis. Bacterial pneumonia, meningitis, encephalitis, pulmonary embolism unlikely. This represents a partial list of diagnoses considered. These considerations are based on history, physical exam, past history, reassessment and diagnostic testing. Smoking Status: Never smoked Constitutional: Initial Vital Signs Temperature (C) 36.5 C 12/13/18 17:58 Heart Rate 93 12/13/18 17:58 Respiratory Rate 16 12/13/18 17:58 Blood Pressure 158/107 H 12/13/18 17:58 O2 Sat (%) 94 12/13/18 17:58 O2 Delivery Mode Room Air Allergies/Adverse Reactions: diphenhydramine [From Benadryl] Allergy (Verified 12/13/18 18:13) sulfamethoxazole [From Bactrim] Allergy (Verified 12/13/18 18:13) Other-Enter Comments trimethoprim [From Bactrim] Allergy (Verified 12/13/18 18:13) Other-Enter Comments Home Medications: Medication Instructions Recorded Metformin HCl 10/02/18 Prazosin HCl 10/02/18 Hydrochlorothiazide 10/22/18 Valacyclovir HCl [Valtrex] 1,000 mg PO TID #21 tab 10/22/18 Aspirin 12/13/18 Magnesium 12/13/18 Medical Decision Making - Diagnostics Imaging Results: Imaging Impressions Chest X-Ray 12/13/18 18:00 Impression: Negative chest. Departure - Departure Disposition: Home, Routine, Self-Care Clinical Impression: Viral syndrome, Bronchitis Condition: Good Instructions: Acute Bronchitis (ED), Viral Syndrome (ED) Additional Instructions: Read and follow provided instructions. Follow-up with your primary care physician, Dr. Araujo, in 1-2 days for re- evaluation. You can take [id number] cough medicines as directed such as Robitussin or NyQuil to help you sleep and help alleviate symptoms at night. Ibuprofen dosin mg every 6 hours with meals for the next 3 days only. Take only as needed for pain. Return to the emergency department for worsening symptoms, worsening cough, high fever, difficulty breathing, worsening shortness of breath or other serious concerns. Referrals: Noe Araujo DO [Primary Care Provider] - As per Instructions
[2018-12-13 18:26] VITALS: BP 134/89
== END 2018-12-13 18:44 | disposition home or self-care (01) ==
LOC: CED 17:54
DX: J40 Bronchitis, not specified as acute or chronic (principal); B34.9 Viral infection, unspecified
CPT/HCPCS: 71046-PO; 99283-ER